=== PATIENT | female | born 1970 | race Two or more races ===

== ENCOUNTER 2023-09-08 06:42 | Day surgery (SDC) | payer OTHER ==
[2023-09-08] MEDS ORDERED: fentaNYL CITRATE 50 MCG/ML AMPUL IV PUSH ONE (10:00)
[2023-09-08] MEDS ORDERED: DIPHENHYDRAMINE HCL 50 MG/ML VIAL 1ML IV ONE (10:00)
[2023-09-08] MEDS ORDERED: ONDANSETRON HCL 2 MG/ML VIAL IV ONE (10:00)
[2023-09-08] MEDS ORDERED: MIDAZOLAM HCL 2 MG/2 ML VIAL IV ONE (10:00)
== END 2023-09-08 11:10 | disposition home or self-care (01) ==
LOC: AMB-ENDOS 06:42
PROVIDERS: ATTEND Colon & Rectal Surgery
DX: K63.5 Polyp of colon (principal); K62.1 Rectal polyp; D12.7 Benign neoplasm of rectosigmoid junction; D12.5 Benign neoplasm of sigmoid colon

== ENCOUNTER 2024-11-29 09:46 | Day surgery (SDC) | payer OTHER ==
[2024-11-29] MEDS ORDERED: DIPHENHYDRAMINE HCL 50 MG/ML VIAL 1ML IV ONE (13:45)
[2024-11-29] MEDS ORDERED: fentaNYL CITRATE 50 MCG/ML AMPUL IV PUSH ONE (13:45)
[2024-11-29] MEDS ORDERED: MIDAZOLAM HCL 2 MG/2 ML VIAL IV ONE (13:45)
[2024-11-29] MEDS ORDERED: ONDANSETRON HCL 2 MG/ML VIAL IV ONE (13:45)
== END 2024-11-29 14:35 | disposition home or self-care (01) ==
LOC: AMB-ENDOS 09:46 → CIR.AMB 14:45
PROVIDERS: ATTEND Colon & Rectal Surgery
DX: K63.5 Polyp of colon (principal); K62.5 Hemorrhage of anus and rectum